=== PATIENT | female | born 2000 | race Caucasian/White ===

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

== ENCOUNTER 2022-10-18 13:30 | Emergency (ER) | payer BC, SELFPAY ==
[2022-10-18 13:32] VITALS: BP 122/90; PULSE 80; RESP 16; TEMP 36.8; O2SAT 100; BMI 33.3
--- NOTE | 2022-10-18 13:38 | EKG12_ITS ---
Test Reason : CP Blood Pressure : / mmHG Vent. Rate : 081 BPM Atrial Rate : 081 BPM P-R Int : 124 ms QRS Dur : 090 ms QT Int : 352 ms P-R-T Axes : 036 052 -05 degrees QTc Int : 408 ms Sinus rhythm with marked sinus arrhythmia T wave abnormality, consider inferior ischemia Abnormal ECG Confirmed by KIARA ETIENNE, ABIOLA ([id number]), loan expeditor RACHELE HERNANDEZ ([id number]) on 10/19/2022 9:13:18 AM Referred By: Confirmed By:ABIOLA CRAIG MD
--- NOTE | 2022-10-18 13:39 | NURSING ---
NO OLD EKGS
[2022-10-18] MEDS: Acetaminophen 500 MG Tablet 1000 MG PO (14:51)
[2022-10-18 14:52] LABS: Absolute Neutrophil Count 5.9 X10^3/uL (2.0-7.7); Basophil# 0.04 X10^3/uL; Basophil% 0.5 % (0-1); Eosinophil# 0.11 X10^3/uL; Eosinophils% 1.3 % (0-5); Hematocrit 41.5 % (37-47); Hemoglobin 13.3 g/dL (12.0-15.0); Lymphocyte % 20.2 % (19-41); Mean Corpuscular Hgb 28.4 pg (27.0-32.0); Mean Corpuscular Volume 88.5 fL (81-99); Mean Platelet Vol. 10.3 fl (6.2-12.0); Monocyte# 0.59 X10^3/uL; NRBC Flagged by Analyzer 0 % (0-5); Neutrophil # 5.93 X10^3/uL (2.7-7.7); Neutrophil % 70.6 % (47-70); Platelet Count 310 K/mm3 (150-450); RBC Distribution Width CV 12.9 % (11.6-14.6); RBC Distribution Width SD 41.7 fl (35.1-43.9); Red Blood Count 4.69 M/mm3 (4.2-5.4); White Blood Count 8.4 K/mm3 (4.4-11.0)
[2022-10-18] MEDS: 0.9% Normal Saline 1,000 ML 1000 ML IV (14:53)
[2022-10-18 15:00] LABS: D-Dimer Quantitative (DVT/PE) 0.34 FEU/ug/m (0.27-0.49)
[2022-10-18 15:07] LABS: Anion Gap 2 (5-15); BUN 7 mg/dL (7-18); BUN/Creat Ratio 9.2 RATIO (10-20); Chloride 105 mmol/L (98-107); Creatinine, Serum 0.76 mg/dL (0.55-1.02); EST Glomerular Filtration Rate 103 mL/min (>60); Est Glom Filt Rate - Afr Amer 125 mL/min (>60); Estimated Creatinine Clearance 119.11 ml/min; Glucose 75 mg/dL (74-106); Potassium 3.7 mmol/L (3.5-5.1); Sodium Level 136 mmol/L (136-145); Troponin-I HS < 3 pg/mL (3.0-54.0)
--- NOTE | 2022-10-18 15:58 | ED.VIS.CHEST ---
HPI History of Present Illness Chief Complaint: Chest Pain Informant: patient Onset/Context/Timing Onset: Today Activity at onset: gradual Timing: Continuous Location: Substernal Worsened By: Breathing Relieved By: Nothing Associated Symptoms: Positive for Dyspnea and Lightheadedness; Negative for Nausea, Vomiting, Diaphoresis, Cough, Fever, Acid Reflux or Palpitations Narrative Narrative: Patient presents with chest pain that began today. Patient states it is gradually gotten worse over the past 6 hours. Patient states it has been constant. Patient describes it as a pressure but is occasionally stabbing. Patient states it is over the substernal area. Patient states it is worse with deep breathing. Patient admits to some shortness of breath. Patient denies any cough or fevers. Patient admits to some lightheadedness. Patient also states she has been having some intermittent nosebleeds recently. Patient denies any nausea or vomiting. Patient denies any palpitations. Patient states she went to an urgent care today. Patient states they called EMS to have the patient transported to the emergency department. CVD Risk Factors: Negative for Hypertension, Diabetes, Hypercholesterolemia, Family History 1' </=55 or Smoking PE Risk Factors: Negative for Recent Travel/Surgery, Recent Immobilization, Prior DVT or PE, Cancer or OCP + Smoking + >/=35 PFSH PFSH Medical History (Updated 10/18/22 @ 16:[address] Laureano Andino DO) Depression Home Medications penicillin V potassium 250 mg tablet 500 mg PO 4X/DAY #39 tabs 03/18/18 [Rx Last Taken Unknown] Allergy/AdvReac Type Severity Reaction Status Date / Time No Known Allergies Allergy Verified 10/18/22 13:34 Surgical History (Updated 10/18/22 @ 16:[address] Laureano Andino DO) S/P ORIF (open reduction internal fixation) fracture Social History Smoking Status: Never smoker ROS ROS ED Constitutional Constitutional ED: Denies chills or fever(s) Eyes Eyes: Denies blurry vision or change in vision ENT ENT ED: Denies rhinorrhea or sore throat Cardiovascular Cardiovascular: Reports chest pain; Denies palpitations Respiratory/Chest Respiratory/Chest: Reports dyspnea; Denies cough Gastrointestinal Gastrointestinal: Denies abdominal pain, nausea or vomiting Genitourinary Genitourinary ED: Denies dysuria or hematuria Musculoskeletal Musculoskeletal: Denies back pain or neck pain Integumentary Reports rash; Denies abscess Neurologic Neurologic: Denies headache(s) or weakness Allergic/Immunologic Allergic/Immunologic ED: Denies mouth swelling or urticaria EXAM Physical Exam Const Vital Signs: 10/18/22 13:32 10/18/22 16:00 Temperature 98.2 F Temperature Source Temporal Pulse Rate 80 78 Respiratory Rate 16 19 H Blood Pressure 122/90 H 116/71 Blood Pressure Mean 100 86 Pulse Ox 100 100 Oxygen Delivery Method Room Air Room Air Positive well nourished, well developed and obese General Appearance ED: well developed and NAD Nutritional Appearance: obese HEENT normocephalic and atraumatic Eyes PERRL and EOMs intact bilaterally Neck supple and no JVD Chest Wall Chest: tenderness sternum Resp normal respiratory effort and clear to auscultation bilaterally Effort and Inspection: Negative for respiratory distress Cardio regular rate, regular rhythm and no murmurs GI normal to inspection, nondistended, normoactive bowel sounds, soft to palpation, non-tender and non-distended Extremity normal to inspection General Extremety ED: Negative for edema or tenderness General Extremity: Negative for edema Neuro oriented x3, CN's II-XII intact bilaterally and no sensory deficits noted Sensorium / Orientation: awake and alert Motor Exam: strength 5/5 throughout Psych mental status grossly normal Heart Score History: Moderately Suspicious ECG: Normal Age: </= 45 years Risk Factors: No Risk Factors Troponin: </= Normal Limit Score: 1 MDM MDM MDM Narrative Medical decision making narrative: Differential diagnosis includes cardiac dysrhythmia, cardiac ischemia, pneumonia, pneumothorax, pulmonary embolism, and anxiety. EKG will be obtained to assess for cardiac dysrhythmia and cardiac ischemia. D-dimer will be obtained to assess for pulmonary embolism. Chest x-ray will be obtained to assess for pneumonia and pneumothorax. CBC will be obtained to assess for leukocytosis and anemia. Basic metabolic profile will be obtained to assess for electrolyte abnormality and renal function. High-sensitivity troponin will be obtained to assess for cardiac ischemia. Lab Data Attestation: I reviewed the patient's lab results. Lab results narrative: CBC was reviewed and was within normal limits. Basic metabolic profile was reviewed and was within normal limits. High-sensitivity troponin was reviewed and was less than 3. D-dimer was reviewed and was normal. Labs: Laboratory Results - last 24 hr 10/18/22 10/18/22 10/18/22 13:20 13:20 13:20 WBC 8.4 RBC 4.69 Hgb 13.3 Hct 41.5 MCV 88.5 MCH 28.4 MCHC 32.0 RDW Std Deviation 41.7 RDW Coeff of Cindy 12.9 Plt Count 310 MPV 10.3 Immature Gran % (Auto) 0.400 Neut % (Auto) 70.6 H Lymph % (Auto) 20.2 [place] % (Auto) 7.0 Eos % (Auto) 1.3 Baso % (Auto) 0.5 Absolute Neuts (auto) 5.9 Absolute Lymphs (auto) 1.70 Nucleated RBC % 0 D-Dimer Quant (PE/DVT) 0.34 Sodium 136 Potassium 3.7 Chloride 105 Carbon Dioxide 29.0 Anion Gap 2 L BUN 7 Creatinine 0.76 Estim Creat Clear Calc 119.11 Est GFR (MDRD) Af Amer 125 Est GFR (MDRD) Non-Af 103 BUN/Creatinine Ratio 9.2 L Glucose 75 Calcium 9.0 Troponin I High Sens < 3 L Radiography Diagnostic Testing: Clinical Impression(s) from Imaging Studies Chest X-Ray 10/18/22 16:14 IMPRESSION: No radiographic evidence of acute cardiopulmonary disease. Electronically Signed: Herberth Espinosa MD at 16:33 EDT Reading Location ID and State: [facility] / [place] , Service support , [place] and lateral chest x-ray was obtained. There are 2 views. On my independent interpretation, lung huynh are clear. There is normal cardiac silhouette. Bony thorax is normal. There is no acute process noted. Radiologist also interpreted the x-ray and agrees. EKG Initial EKG: Attestation: I personally reviewed and interpreted this EKG as follows: Interpretation: Sinus Rhythm (81) and No Acute Injury Pattern Comments: EKG was obtained. On my independent interpretation, it showed a normal sinus rhythm with a rate of 81. TX interval, QRS interval, and QTc intervals were all normal. [place] was normal. There are no acute ST or T wave changes. Prior EKG tracings: not available for review Prior: No Prior Treatment and Re-Evaluation :: Patient was given IV fluids and Tylenol here. Patient is feeling better on reevaluation. Patient was advised of her findings. Patient has a HEART score of 1. Patient was advised that this is low risk for acute cardiac event. Patient was instructed to take Tylenol or ibuprofen as needed for pain. Patient was instructed to follow-up with her primary care physician in 5 to 7 days for further evaluation. Patient understood and was agreeable with the plan. All questions were answered. Discharge Plan Triage Chief Complaint: Chest Pain ED Provider: Laureano Andino Dx/Rx/DC Orders Clinical Impression: Chest pain, Depression Instructions: ED Chest Pain, Uncertain Cause Prescriptions: No Action penicillin V potassium 250 MG tablet 500 mg PO 4X/DAY Qty: 39 0RF Primary Care Provider: Care Physician,No Primary Referrals: Care Physician,No Primary [Primary Care Provider] - Disposition Disposition: Home, Self Care
[2022-10-18 16:00] VITALS: BP 116/71; PULSE 78; RESP 19; O2SAT 100
--- NOTE | 2022-10-18 16:14 | RAD_ITS ---
EXAM: XR CHEST, 2 VIEWS CLINICAL INDICATION: Chest pain TECHNIQUE: Frontal and lateral views of the chest. COMPARISON: No relevant prior studies available. FINDINGS: LUNGS AND PLEURAL SPACES: Unremarkable. No consolidation or edema. No pneumothorax. No effusion. HEART: Unremarkable. Cardiac silhouette not enlarged. MEDIASTINUM: Central airways and mediastinal contour are unremarkable. BONES/JOINTS: Unremarkable. SOFT TISSUES: Unremarkable. RAD/Chest PA and Lateral IMPRESSION: No radiographic evidence of acute cardiopulmonary disease. Electronically Signed: Herberth Espinosa MD at 16:33 EDT ,
== END 2022-10-18 17:04 | disposition home or self-care (01) ==
PROVIDERS: Emergency Provider Emergency Medicine; Visit Provider Emergency Medicine
DX: R07.9 Chest pain, unspecified (principal); F32.A Depression, unspecified; E66.9 Obesity, unspecified
CPT/HCPCS: 71046; 80048; 84484; 85025; 85379; 93005; 96360; 96361; 99285; J7030